=== PATIENT | male | born 1945 | race Caucasian/White ===

== ENCOUNTER 2017-05-28 09:58 | Outpatient (CLI) | payer MEDICARE, OTHER ==
[2017-05-28] MEDS ORDERED: BARIUM SULFATE 454 GM TUBE PO ONE (10:47)
[2017-05-28] MEDS ORDERED: BARIUM SULFATE 148 GM POWDER PO ONE (10:47)
--- NOTE | 2017-05-28 13:43 | XRAY Report ---
MODIFIED BARIUM SWALLOW: 05/28/2017 CLINICAL INDICATION: Dysphagia. FINDINGS: Various consistencies of barium were prepared and administered in conjunction with Speech Pathology. There was penetration with thin liquids and mixed consistency, without loraine aspiration. Please also refer to full report from Speech Pathology for further findings. IMPRESSION: PENETRATION WITH THIN LIQUIDS AND MIXED CONSISTENCY, WITHOUT LORAINE ASPIRATION. FLUOROSCOPY TIME: 1 minute, 28 seconds; 1 spot image obtained (cinefluoroscopy recorded). JOB #: [id number] EXT JOB #:[id number]
== END 2017-05-28 09:59 | disposition home or self-care (01) ==
LOC: DI 09:58
PROVIDERS: ATTEND Physician Assistant Medical
DX: R13.12 Dysphagia, oropharyngeal phase (principal)
CPT/HCPCS: 74230; 92611; G8996; G8997; G8998

== ENCOUNTER 2017-07-31 17:19 | Outpatient (CLI) | payer MEDICARE, OTHER ==
--- NOTE | 2017-07-31 17:57 | CT Preliminary Report ---
Exam: CT Head W/O IMPRESSION: 1. No acute or focal intracranial abnormality. [facility] SITE ID: [id number]
--- NOTE | 2017-07-31 17:59 | CT Report ---
EXAM: CT HEAD EXAM DATE: 07/31/2017 05:38 PM. CLINICAL HISTORY: ALTERED MENTAL STATUS, OTALGIA, RIGHT. COMPARISON: None. TECHNIQUE: Multiaxial CT images were obtained from the foramen magnum to the vertex. IV contrast: Non e. Reformats: Coronal. In accordance with CT protocol optimization, one or more of the following dose reduction techniques w ere utilized for this exam: automated exposure control, adjustment of mA and/or KV based on patient s ize, or use of iterative reconstructive technique. FINDINGS: Parenchyma: There is mild nonfocal periventricular white matter hypodensity. Negative for intracrania l acute hemorrhage. No midline shift. Extraaxial Spaces: No abnormal subdural or epidural fluid collection. There is generalized mild cereb ral volume loss. Ventricles: Symmetric in size and normal in location. Sinuses: Imaged paranasal sinuses, orbits, and mastoids show no significant abnormality. Bones: No evidence of fracture or calvarial defect. Other: None. IMPRESSION: 1. No acute or focal intracranial abnormality. [facility] Referring Provider Line: [phone] SITE ID: [id number]
[2017-07-31 18:07] LABS: CALCIUM 9.1 mg/dL (8.5-10.3); CREATININE 0.8 mg/dL (0.6-1.2); POTASSIUM 3.9 mmol/L (3.5-5.0)
== END 2017-07-31 17:20 | disposition home or self-care (01) ==
LOC: DI 17:19
PROVIDERS: ATTEND Physician Assistant Medical
DX: R41.82 Altered mental status, unspecified (principal); H92.01 Otalgia, right ear
CPT/HCPCS: 70450; 80048

== ENCOUNTER 2017-08-05 13:23 | Outpatient (CLI) | payer MEDICARE, OTHER ==
[2017-08-05] MEDS ORDERED: GADOBUTROL 7.5 MMOL/7.5 ML VIAL IVP ONE (14:35)
--- NOTE | 2017-08-05 19:29 | MRI Report ---
MRI BRAIN AND INTERNAL AUDITORY CANALS WITHOUT AND WITH CONTRAST EXAM DATE: 08/05/2017. INDICATION: 72-year-old male with altered mental status, right-sided otalgia and memory loss. COMPARISON: Head CT 07/31/2017. TECHNIQUE: Imaging of the brain and internal auditory canals was performed on a [employer], 3 Christine MRI system. The foll owing sequences were obtained: Brain: 1. Sagittal T1. 2. Axial T1 MPRAGE, FLAIR, T2 and DWI. 3. 7 mL IV Gadavist. T1 MPRAGE axial. Internal Auditory Canals: 1. Thin slice, fat-saturated T2 coronal. 2. Thin slice, high-resolution, balanced FFE axial. 3. Postcontrast, thin slice T1 fat-saturated axial. FINDINGS: Internal Auditory Canals: On the balanced FFE axial sequence the vestibulocochlear nerve bundles are well seen in the CP angle cisterns and internal auditory canals bilaterally. No focal mass lesion is demonstrated. Normal fluid -filled spaces are identified in the distribution of the cochlea, vestibules and semicircular canals bilaterally. The bone overlying the left superior semicircular canal is very thin; however, no loraine dehiscence of either superior semicircular canal is identified. No abnormal enlargement of the endoly mphatic ducts or sacs is demonstrated. Postcontrast sequence shows no evidence of an enhancing CP ang le or internal auditory canal mass lesion. In addition, no abnormal enhancement is identified in eith er labyrinth. Brain: There is generalized, cerebral and cerebellar volume loss with associated ex vacuo ventriculomegaly. There is no apparent discordance between the degree of ventriculomegaly and the amount of cortical dumont lcal dilatation to suggest the possibility of NPH or other form of hydrocephalus. The degree of volum e loss is considered within normal limits for stated age. Of note, there does appear to be somewhat d isproportionate enlargement of the temporal horns when compared to the remainder of the lateral ventr icles. This suggests that there probably is disproportionately advanced volume loss involving the hip pocampi, a finding that can be seen with Alzheimer's disease. A mild amount of white matter disease is identified in the supratentorial brain, manifested as focal and confluent T2 hyperintensities that are scattered throughout the periventricular, deep and subcort ical white matter bilaterally. A frontoparietal distribution predominates. There is hazy T2 hyperinte nsity in the darwin bilaterally. Signal intensity of cortex and white matter is otherwise unremarkable. Flow voids are seen in the main intracranial arteries. No abnormal diffusion restriction is demonstra yazmin. No enhancing space-occupying mass lesion is demonstrated. No pathologic meningeal or cranial nerve en hancement is identified. There appears to be normal intravascular contrast enhancement in the dural v enous sinuses and deep venous structures. Limited assessment of the orbits reveals no gross pathology. Mucosal thickening is identified in multiple ethmoid air cells and in the left chamber of the sphenoi d sinus. No air-fluid level is identified. No significant mastoid or middle ear effusion is seen. Marrow signal intensity in the regional skeletal structures is unremarkable. IMPRESSION: 1. Normal MRI examination of the internal auditory canals. 2. Age-appropriate senescent changes. There appears to be disproportionately more advanced volume los s involving the hippocampi. This is a finding that can be seen with Alzheimer's disease. Clinical cor relation advised. 3. A mild amount of white matter disease is identified, likely representing chronic microangiopathy. 4. No other significant intracranial findings. In particular, no evidence of infarction, hemorrhage, space-occupying mass lesion or other acute intracranial abnormality. Referring Provider Line: [phone] SITE ID: [id number]
== END 2017-08-05 13:24 | disposition home or self-care (01) ==
LOC: DI 13:23
PROVIDERS: ATTEND Physician Assistant Medical
DX: R41.82 Altered mental status, unspecified (principal); R41.3 Other amnesia; H92.01 Otalgia, right ear
CPT/HCPCS: 70553; A9585

== ENCOUNTER 2018-02-20 08:00 | Outpatient (CLI) | payer MEDICARE, OTHER ==
[2018-02-20 12:37] LABS: BASOPHILS % (AUTO) 0.4 %; EOSINOPHILS # (AUTO) 0.1 10^3/uL (0.0-0.7); HGB - HEMOGLOBIN 13.4 g/dL (14.0-18.0); LYMPHOCYTES # (AUTO) 0.9 10^3/uL (1.5-3.5); LYMPHOCYTES % (AUTO) 21.2 %; MEAN CORPUSCULAR HEMOGLOBIN 31.1 pg (27.0-31.0); MEAN CORPUSCULAR HGB CONC 34.4 g/dL (32.0-36.0); MEAN CORPUSCULAR VOLUME 90.6 fL (80.0-94.0); MEAN PLATELET VOLUME 7.9 fL (7.4-11.4); MONOCYTES # (AUTO) 0.3 10^3/uL (0.0-1.0); MONOCYTES % (AUTO) 7.5 %; NEUTROPHILS % (AUTO) 67.9 %; PLT - PLATELET COUNT 219 10^3/uL (130-450); RED CELL DISTRIBUTION WIDTH 13.2 % (12.0-15.0); WHITE BLOOD COUNT 4.5 x10^3/uL (4.8-10.8)
[2018-02-20 13:04] LABS: THYROID STIMULATING HORMONE < 0.08 uIU/mL (0.34-5.60)
[2018-02-20 13:11] LABS: ALBUMIN 4.2 g/dL (3.2-5.5); ALBUMIN/GLOBULIN RATIO 1.6 (1.0-2.2); ALKALINE PHOSPHATASE 77 IU/L (42-121); ALT ALANINE AMINOTRANSFERASE 22 IU/L (10-60); AST ASPARTATE AMINOTRANSFERASE 20 IU/L (10-42); BILIRUBIN,TOTAL 0.5 mg/dL (0.2-1.0); BUN - BLOOD UREA NITROGEN 18 mg/dL (6-20); CALCIUM 9.3 mg/dL (8.5-10.3); CARBON DIOXIDE - CO2 28 mmol/L (21-32); CHLORIDE 102 mmol/L (101-111); CHOL/HDL RATIO 5.5 (<5.0); CHOLESTEROL 280 mg/dL; CREATININE 0.9 mg/dL (0.6-1.2); GFR - MDRD 82 (>89); GLUCOSE 139 mg/dL (70-100); HDL CHOLESTEROL 51 mg/dL; LDL CHOLESTEROL,CALCULATED 195 mg/dL; LDL/HDL RATIO 3.8 (<3.6); SODIUM 137 mmol/L (135-145); TOTAL PROTEIN 6.8 g/dL (6.7-8.2); VLDL CHOLESTEROL 34 mg/dL
[2018-02-20 14:15] LABS: FREE T4 (FREE THYROXINE) 0.98 ng/dL (0.58-1.64)
== END 2018-02-20 08:01 | disposition home or self-care (01) ==
LOC: LAB.WCP 08:00
PROVIDERS: ATTEND Physician Assistant Medical
DX: E78.5 Hyperlipidemia, unspecified (principal); R97.20 Elevated prostate specific antigen [PSA]; E03.9 Hypothyroidism, unspecified; I10 Essential (primary) hypertension
CPT/HCPCS: 36415; 80053; 80061; 83721; 84153; 84439; 84443; 85025

== ENCOUNTER 2018-02-24 16:54 | Outpatient (CLI) | payer MEDICARE, OTHER ==
[2018-02-24 16:30] LABS: PSA FREE 0.597 ng/mL (0.16-2.81)
[2018-02-24 16:31] LABS: PSA TOTAL 8.445 ng/mL (0.000-2.000)
== END 2018-02-24 16:55 | disposition home or self-care (01) ==
LOC: LAB.R 16:54
PROVIDERS: ATTEND Physician Assistant Medical
DX: R97.20 Elevated prostate specific antigen [PSA] (principal)
CPT/HCPCS: 84154

== ENCOUNTER 2018-02-27 08:00 | Outpatient (CLI) | payer MEDICARE, OTHER ==
[2018-02-27 13:12] LABS: % IRON SATURATION 34 % (20-50); ALBUMIN 4.3 g/dL (3.2-5.5); ALBUMIN/GLOBULIN RATIO 1.7 (1.0-2.2); ALKALINE PHOSPHATASE 86 IU/L (42-121); ALT ALANINE AMINOTRANSFERASE 17 IU/L (10-60); AST ASPARTATE AMINOTRANSFERASE 20 IU/L (10-42); BILIRUBIN,TOTAL 0.8 mg/dL (0.2-1.0); BUN - BLOOD UREA NITROGEN 16 mg/dL (6-20); CALCIUM 9.2 mg/dL (8.5-10.3); CARBON DIOXIDE - CO2 30 mmol/L (21-32); CHLORIDE 101 mmol/L (101-111); CHOL/HDL RATIO 5.3 (<5.0); CHOLESTEROL 294 mg/dL; GFR - MDRD 73 (>89); GLUCOSE 102 mg/dL (70-100); HDL CHOLESTEROL 55 mg/dL; IRON 108 ug/dL (45-182); LDL CHOLESTEROL,CALCULATED 217 mg/dL; LDL/HDL RATIO 3.9 (<3.6); SODIUM 136 mmol/L (135-145); TOTAL IRON BINDING CAPACITY 322 ug/dL (250-450); TOTAL PROTEIN 6.8 g/dL (6.7-8.2); TRANSFERRIN 230 mg/dL (180-329); VLDL CHOLESTEROL 22 mg/dL
[2018-02-27 13:13] LABS: HB2 TOTAL 14.2 g/dL; HEMOGLOBIN A1C 0.53 g/dL; HEMOGLOBIN A1C % 5.6 % (4.6-6.2)
[2018-02-27 13:23] LABS: FERRITIN 51.7 ng/mL (23.9-336.2)
== END 2018-02-27 08:01 | disposition home or self-care (01) ==
LOC: LAB.WCP 08:00
PROVIDERS: ATTEND Physician Assistant Medical
DX: R73.9 Hyperglycemia, unspecified (principal); E78.5 Hyperlipidemia, unspecified; D64.9 Anemia, unspecified; R97.20 Elevated prostate specific antigen [PSA]
CPT/HCPCS: 36415; 80053; 80061; 82607; 82728; 83036; 83540; 83721; 84154; 84466

== ENCOUNTER 2019-03-24 10:34 | Outpatient (CLI) | payer MEDICARE, OTHER ==
--- NOTE | 2019-03-24 11:12 | XRAY Report ---
Reason: FOOT PAIN,LEFT Procedure Date: 03/24/2019 Accession Number: [id number] / [id number] Procedure: WCP - Foot 2 View LT CPT Code: FULL RESULT: EXAM: LEFT FOOT RADIOGRAPHY EXAM DATE: 03/24/2019 10:50 AM. CLINICAL HISTORY: Foot pain, left. COMPARISON: None. TECHNIQUE: 2 views. FINDINGS: Bones: Normal. No fractures or bone lesions. Joints: Normal. No subluxations. Soft Tissues: Note is made of vascular calcifications, peripheral arterial disease. IMPRESSION: Peripheral arterial disease. [facility]
== END 2019-03-24 10:35 | disposition home or self-care (01) ==
LOC: DI.WCP 10:34
PROVIDERS: ATTEND Physician Assistant Medical
DX: M79.672 Pain in left foot (principal); I73.9 Peripheral vascular disease, unspecified; I10 Essential (primary) hypertension; E03.9 Hypothyroidism, unspecified; E78.5 Hyperlipidemia, unspecified; R73.9 Hyperglycemia, unspecified
CPT/HCPCS: 36415; 80053; 80061; 83036; 83721; 84439; 84443; 85025

== ENCOUNTER 2019-03-24 10:51 | Outpatient (CLI) | payer MEDICARE, OTHER ==
[2019-03-24 19:42] LABS: BASOPHILS % (AUTO) 0.5 %; EOSINOPHILS # (AUTO) 0.1 10^3/uL (0.0-0.7); EOSINOPHILS % (AUTO) 1.5 %; HGB - HEMOGLOBIN 12.6 g/dL (14.0-18.0); LYMPHOCYTES # (AUTO) 1.1 10^3/uL (1.5-3.5); LYMPHOCYTES % (AUTO) 21.8 %; MEAN CORPUSCULAR HEMOGLOBIN 30.9 pg (27.0-31.0); MEAN CORPUSCULAR HGB CONC 33.3 g/dL (32.0-36.0); MEAN CORPUSCULAR VOLUME 92.7 fL (80.0-94.0); MONOCYTES # (AUTO) 0.3 10^3/uL (0.0-1.0); MONOCYTES % (AUTO) 6.9 %; NEUTROPHILS # (AUTO) 3.4 10^3/uL (1.5-6.6); NEUTROPHILS % (AUTO) 69.3 %; PLT - PLATELET COUNT 220 10^3/uL (130-450); RED BLOOD COUNT 4.08 10^6/uL (4.70-6.10); RED CELL DISTRIBUTION WIDTH 13.6 % (12.0-15.0); WHITE BLOOD COUNT 4.9 x10^3/uL (4.8-10.8)
[2019-03-24 20:30] LABS: ALBUMIN 4.1 g/dL (3.2-5.5); ALBUMIN/GLOBULIN RATIO 1.5 (1.0-2.2); ALKALINE PHOSPHATASE 73 IU/L (42-121); ALT ALANINE AMINOTRANSFERASE 13 IU/L (10-60); AST ASPARTATE AMINOTRANSFERASE 17 IU/L (10-42); BILIRUBIN,TOTAL 0.8 mg/dL (0.2-1.0); BUN - BLOOD UREA NITROGEN 22 mg/dL (6-20); CALCIUM 9.2 mg/dL (8.5-10.3); CARBON DIOXIDE - CO2 30 mmol/L (21-32); CHLORIDE 100 mmol/L (101-111); CHOL/HDL RATIO 4.1 (<5.0); CHOLESTEROL 258 mg/dL; CREATININE 0.8 mg/dL (0.6-1.2); GFR - MDRD 94 (>89); GLUCOSE 105 mg/dL (70-100); HDL CHOLESTEROL 63 mg/dL; LDL CHOLESTEROL,CALCULATED 178 mg/dL; LDL/HDL RATIO 2.8 (<3.6); SODIUM 138 mmol/L (135-145); TOTAL PROTEIN 6.9 g/dL (6.7-8.2); VLDL CHOLESTEROL 17 mg/dL
[2019-03-24 21:04] LABS: FREE T4 (FREE THYROXINE) 1.06 ng/dL (0.58-1.64)
[2019-03-24 21:12] LABS: HB2 TOTAL 13.3 g/dL; HEMOGLOBIN A1C 0.56 g/dL
== END 2019-03-24 10:52 | disposition home or self-care (01) ==
LOC: LAB.WCP 10:51
PROVIDERS: ATTEND Family Medicine
DX: I10 Essential (primary) hypertension (principal); E03.9 Hypothyroidism, unspecified; E78.5 Hyperlipidemia, unspecified; R73.9 Hyperglycemia, unspecified
CPT/HCPCS: 36415; 80053; 80061; 83036; 83721; 84439; 84443; 85025

== ENCOUNTER 2019-06-23 11:15 | Outpatient (CLI) | payer MEDICARE, OTHER | END 2019-06-23 11:16 | disposition critical access hospital (66) | LOC: EMS 11:15 | PROVIDERS: ATTEND Surgery | DX: S09.90XA Unspecified injury of head, initial encounter (principal); W01.0XXA Fall on same level from slipping, tripping and stumbling without subsequent striking against object, initial encounter; Y93.K1 Activity, walking an animal; Y92.480 Sidewalk as the place of occurrence of the external cause | CPT/HCPCS: A0425; A0429 ==

== ENCOUNTER 2019-06-23 11:34 | Emergency (ER) | payer MEDICARE, OTHER ==
--- NOTE | 2019-06-23 11:43 | ED Physician Documentation ---
History of Present Illness - Stated complaint Stated Complaint: GLF - History obtained from History obtained from: Patient, Family - History of Present Illness Timing: Prior to arrival - Additonal information Additional information: Patient is a 74-year-old male with history of dementia presenting with his after mechanical fall earlier today. reports that patient was out walking the dog and is unsure as to how he fell, but reports striking of his head and superficial abrasion to the left forehead. Unknown LOC. No other known injuries. Tetanus current. Patient and deny neck pain, back pain, chest pain, shortness of breath, extremity injury. Patient's also denies any recent changes to his baseline mental or physical health including new vomiting, urinary changes, or stool changes. No other improving or worsening factors noted. Review of Systems Constitutional: denies: Fever Eyes: denies: Loss of vision Nose: denies: Epistaxis Throat: denies: Dental pain / toothache Cardiac: denies: Chest pain / pressure Respiratory: denies: Dyspnea, Cough GI: denies: Abdominal Pain, Nausea, Vomiting, Diarrhea : denies: Dysuria Skin: reports: Abrasion (s) Musculoskeletal: denies: Neck pain, Back pain, Extremity pain Neurologic: reports: Head injury PD PAST MEDICAL HISTORY - Past Medical History Past Medical History: Yes Neuro: Alzhiemer's Psych: Depression - Past Surgical History Past Surgical History: No - Allergies Allergies/Adverse Reactions: Allergies Allergy/AdvReac Type Severity Reaction Status Date / Time No Known Drug Allergies Allergy Verified 06/23/19 11:57 - Living Situation Living Arrangement: reports: Assisted living PD ED PE NORMAL - Vitals Vital signs reviewed: Yes - General General: No acute distress, Well developed/nourished. No: Alert and oriented X 3 (Oriented except to time ( reports baseline)) - HEENT HEENT: PERRL, EOMI, Moist mucous membranes, Dentition benign, Other (No epistaxis or intraoral trauma noted.). No: Atraumatic (Small superficial abrasion to left forehead that is otherwise uncomplicated, but no other facial bone tenderness or instability, raccoon eyes, carrera signs, periorbital swelling or ecchymosis noted.) - Neck Neck: No bony TTP - Cardiac Cardiac: RRR, No murmur - Respiratory Respiratory: No respiratory distress, Clear bilaterally - Abdomen Abdomen: Normal bowel sounds, Soft, Non tender, Non distended - Back Back: No spinal TTP - Derm Derm: Normal color, Warm and dry, No rash - Extremities Extremities: No deformity, No tenderness to palpate. No: No edema (Trace non pitting pedal edema bilaterally) - Neuro Neuro: No motor deficit, No sensory deficit. No: Alert and oriented X 3 (Oriented except to time) - Psych Psych: Other (Flat affect) Results - Vitals Vitals: Vital Signs - 24 hr 06/23/19 11:54 Temperature 36.6 C Heart Rate 62 Respiratory 20 Rate Blood Pressure 114/73 O2 Saturation 98 Oxygen O2 Source Room air - EKG (time done) 1207 Rate: Rate (enter#) (56) Rhythm: NSR - Labs Labs: Laboratory Tests 06/23/19 06/23/19 06/23/19 12:04 12:04 12:04 WBC 6.4 RBC 3.76 L Hgb 11.5 L Hct 34.7 L MCV 92.3 MCH 30.6 MCHC 33.1 RDW 12.4 Plt Count 197 MPV 8.8 Neut # (Auto) 4.8 Lymph # (Auto) 0.8 L [place] # (Auto) 0.5 Eos # (Auto) 0.2 Baso # (Auto) 0.0 Absolute Nucleated RBC 0.00 Nucleated RBC % 0.0 Sodium 140 Potassium 4.0 Chloride 101 Carbon Dioxide 28 Anion Gap 11.0 BUN 23 H Creatinine 0.8 Estimated GFR (MDRD) 94 Glucose 95 Calcium 9.1 Total Bilirubin 0.6 AST 20 ALT 20 Alkaline Phosphatase 103 Troponin I < 0.04 Troponin I High Sens 3.7 Total Protein 6.6 L Albumin 3.8 Globulin 2.8 Albumin/Globulin Ratio 1.4 Lipase 26 Urine Color Urine Clarity Urine pH Ur Specific [place] Urine Protein Urine Glucose (UA) Urine Ketones Urine Occult Blood Urine Nitrite Urine Bilirubin Urine Urobilinogen Ur Leukocyte Esterase Ur Microscopic Review Urine Culture Comments 06/23/19 13:30 WBC RBC Hgb Hct MCV MCH MCHC RDW Plt Count MPV Neut # (Auto) Lymph # (Auto) [place] # (Auto) Eos # (Auto) Baso # (Auto) Absolute Nucleated RBC Nucleated RBC % Sodium Potassium Chloride Carbon Dioxide Anion Gap BUN Creatinine Estimated GFR (MDRD) Glucose Calcium Total Bilirubin AST ALT Alkaline Phosphatase Troponin I Troponin I High Sens Total Protein Albumin Globulin Albumin/Globulin Ratio Lipase Urine Color YELLOW Urine Clarity CLEAR Urine pH 6.5 Ur Specific [place] 1.010 Urine Protein NEGATIVE Urine Glucose (UA) NEGATIVE Urine Ketones NEGATIVE Urine Occult Blood NEGATIVE Urine Nitrite NEGATIVE Urine Bilirubin NEGATIVE Urine Urobilinogen 0.2 (NORMAL) Ur Leukocyte Esterase NEGATIVE Ur Microscopic Review NOT INDICATED Urine Culture Comments NOT INDICATED PD MEDICAL DECISION MAKING - ED course Complexity details: reviewed results, re-evaluated patient, considered differential, d/w patient, d/w family ED course: Patient presenting with his after fall while walking the dog earlier today. Patient has superficial abrasion to the left forehead that will not require closure. Tetanus is current and does not require updating. Patient himself is a poor historian given his underlying dementia and able to provide further history. Besides his head trauma, do not find evidence of other trauma on exam. Do not find evidence of new neurological deficit and patient's reports that he is at baseline.No other signs of systemic illness.CT head and neck obtained which not find evidence of acute abnormality, but age-related and chronic findings. EKG and cardiac enzymes obtained although have low suspicion for cardiac event such as ACS, MT, unstable angina, dissection, aneurysm, but considered. No evidence of ischemia today. Remainder of screening lab work and urinalysis do not reflect infection, electrolyte disturbance, acute kidney inj ury, or other abnormality. At this time, feel that patient is safe to discharge home with . Discussed results and recommendations, as well as supportive cares, return precautions, and follow-up. voiced understanding and is comfortable with discharge plan. Departure - Departure Disposition: 01 Home, Self Care Clinical Impression: Closed head injury Qualifiers: Encounter type: initial encounter Qualified Code(s): S09.90XA - Unspecified injury of head, initial encounter Condition: Good Instructions: ED Head Injury Closed Follow-Up: Marycarmen Belle PA-C [Primary Care Provider] - Within 3 Days Comments: Please continue all home medications as previously instructed. You may experience concussive-like symptoms and please refrain from activities that could result in falling or striking of your head again. Follow-up with primary care physician in next 2 to 3 days for reevaluation and approval to return to full activity. May use ibuprofen/Tylenol for pain. Please keep wound clean and dry using running water and soap only to clean to avoid infection. Return to ED sooner if experience another fall or have other concerns.
[2019-06-23 12:12] LABS: BASOPHILS % (AUTO) 0.3 %; EOSINOPHILS # (AUTO) 0.2 10^3/uL (0.0-0.7); EOSINOPHILS % (AUTO) 3.6 %; HGB - HEMOGLOBIN 11.5 g/dL (14.0-18.0); LYMPHOCYTES # (AUTO) 0.8 10^3/uL (1.5-3.5); LYMPHOCYTES % (AUTO) 12.4 %; MEAN CORPUSCULAR HEMOGLOBIN 30.6 pg (27.0-31.0); MEAN CORPUSCULAR HGB CONC 33.1 g/dL (32.0-36.0); MEAN CORPUSCULAR VOLUME 92.3 fL (80.0-94.0); MEAN PLATELET VOLUME 8.8 fL (7.4-11.4); MONOCYTES # (AUTO) 0.5 10^3/uL (0.0-1.0); MONOCYTES % (AUTO) 7.8 %; NEUTROPHILS # (AUTO) 4.8 10^3/uL (1.5-6.6); NEUTROPHILS % (AUTO) 75.6 %; PLT - PLATELET COUNT 197 10^3/uL (130-450); RED BLOOD COUNT 3.76 10^6/uL (4.70-6.10); RED CELL DISTRIBUTION WIDTH 12.4 % (12.0-15.0); WHITE BLOOD COUNT 6.4 x10^3/uL (4.8-10.8)
[2019-06-23 12:30] LABS: CREATININE 0.8 mg/dL (0.6-1.2)
[2019-06-23 12:31] LABS: ALBUMIN 3.8 g/dL (3.2-5.5); ALBUMIN/GLOBULIN RATIO 1.4 (1.0-2.2); BILIRUBIN,TOTAL 0.6 mg/dL (0.2-1.0); CALCIUM 9.1 mg/dL (8.5-10.3); TOTAL PROTEIN 6.6 g/dL (6.7-8.2)
[2019-06-23 12:39] LABS: TROPONIN I < 0.04 ng/mL (<0.49)
--- NOTE | 2019-06-23 13:06 | CT Report ---
Reason: fall with abrasion to left forehead Procedure Date: 06/23/2019 Accession Number: [id number] / [id number] Procedure: CT - CERVICAL SPINE WO CPT Code: FULL RESULT: EXAM: CT CERVICAL SPINE WITHOUT CONTRAST DATE: 06/23/2019 12:40 PM. HISTORY: Fall with abrasion to left forehead. COMPARISONS: HEAD W/O 07/31/2017 5:37 PM. HEAD W/O 06/23/2019 12:33 PM. TECHNIQUE: Thin-section axial images were acquired of the cervical spine without contrast. Post-processing: Coronal and sagittal reformats. Other: None. In accordance with CT protocol optimization, one or more of the following dose reduction techniques were utilized for this exam: automated exposure control, adjustment of mA and/or KV based on patient size, or use of iterative reconstructive technique. FINDINGS: Alignment: Straightening of the normal cervical lordosis. Slight rightward curvature of the cervical spine. Bones: No fracture or bone lesion. Interspace Levels/Facets: C1-C2: There are arthritic changes seen between the dens and anterior arch of C1. C2-C3: Mild endplate degenerative change with moderate loss of disk height. Calcification seen within the disk space. Small broad-based disk osteophyte complex. Bilateral arthritic facet disease. No definite spinal canal stenosis. Mild left neural foraminal narrowing. C3-C4: Moderate endplate degenerative change, moderate loss of disk height, calcification within the disk space, and vacuum disk phenomenon. Small broad-based disk osteophyte complex. Bilateral uncovertebral osteophyte and arthritic facet disease. Mild spinal canal stenosis. Severe right and moderate left neural foraminal narrowing. C4-C5: Moderate endplate degenerative change, Schmorl's node formation, moderate loss of disk height, and vacuum disk phenomenon. Small broad-based disk osteophyte complex and ligamentum flavum thickening. Bilateral uncovertebral osteophyte and arthritic facet disease. Mild to moderate spinal canal stenosis. Severe bilateral neural foraminal narrowing. C5-C6: Moderate endplate degenerative change, Schmorl's node formation, moderate loss of disk height, and vacuum disk phenomenon. Small broad-based disk osteophyte complex and ligamentum flavum thickening. Bilateral uncovertebral osteophyte and arthritic facet disease. Mild to moderate spinal canal stenosis. Moderate bilateral neural foraminal narrowing. C6-C7: Moderate endplate degenerative change, Schmorl's node formation, and severe loss of disk height. Vacuum disk phenomenon. Small broad-based disk osteophyte complex. Bilateral uncovertebral osteophyte and arthritic facet disease. Mild spinal canal stenosis. Mild to moderate right and moderate left neural foraminal narrowing. C7-T1: Anterior bridging osteophyte. Moderate endplate degenerative change, Schmorl's node formation, and severe loss of disk height. Bilateral arthritic facet disease. No definite spinal canal stenosis. Mild right and mild to moderate left neural foraminal narrowing. Musculature: Posterior spinal musculature appears normal. Minimal edema seen within the subcutaneous tissues of the posterior neck that may represent edema. Other: The paravertebral and prevertebral soft tissues are unremarkable. Vascular calcifications of the carotid bifurcations. Pleural-parenchymal scarring of the visualized lung apices, greater on the right. Mild emphysematous changes. IMPRESSION: 1. No definite acute fracture or traumatic subluxation seen. 2. Straightening of the normal cervical lordosis. 3. Multilevel degenerative changes, as detailed above. [facility]
--- NOTE | 2019-06-23 13:26 | CT Report ---
Reason: fall with abrasion to left forehead Procedure Date: 06/23/2019 Accession Number: [id number] / [id number] Procedure: CT - HEAD WO CPT Code: FULL RESULT: EXAM: CT HEAD EXAM DATE: 06/23/2019 12:40 PM. CLINICAL HISTORY: Fall with abrasion to left forehead. COMPARISON: HEAD W/O 07/31/2017 5:37 PM. TECHNIQUE: Multiaxial CT images were obtained from the foramen magnum to the vertex. Reformats: Sagittal and coronal. IV contrast: None. In accordance with CT protocol optimization, one or more of the following dose reduction techniques were utilized for this exam: automated exposure control, adjustment of mA and/or KV based on patient size, or use of iterative reconstructive technique. FINDINGS: Parenchyma: No acute parenchymal hemorrhage, mass, or midline shift. Mild to moderate bilateral areas of white matter attenuation seen that appears similar to CT head 07/31/2017. No convincing CT evidence of acute infarct. Mild to moderate cortical volume loss. Extraaxial Spaces: Sulci and cistern appear prominent but appropriate for the extent of volume loss. No subdural or epidural collections identified. Ventricles: Normal in size and position. Sinuses and Orbits: Imaged paranasal sinuses, orbits, and mastoids show no significant abnormality. Bones: No evidence of fracture or calvarial defect. Other: There is a 2 mm defect of the midline frontal scalp dermis that may represent laceration (series 7, image 10). There is small left lateral frontal scalp contusion. IMPRESSION: 1. No definite acute intracranial pathology seen; specifically, no acute infarct, acute intracranial hemorrhage, mass, hydrocephalus, or midline shift. 2. There is a 2 mm defect of the midline frontal scalp dermis that may represent laceration (series 7, image 10). There is small left lateral frontal scalp contusion. 3. No definite calvarial fracture. 4. Mild to moderate white matter changes that appear similar to CT head 07/31/2017 and may represent sequela of chronic small vessel ischemic disease. [facility]
[2019-06-23 13:41] LABS: BILIRUBIN,URINE NEGATIVE (NEGATIVE); GLUCOSE, URINE (UA) NEGATIVE (NEGATIVE); KETONES,URINE (UA) NEGATIVE (NEGATIVE); LEUKOCYTE ESTERASE, URINE NEGATIVE (NEGATIVE); NITRITE,URINE NEGATIVE (NEGATIVE); OCCULT BLOOD,URINE NEGATIVE (NEGATIVE); PH,URINE 6.5 PH (5.0-7.5); PROTEIN,URINE NEGATIVE (NEGATIVE); UROBILINOGEN,URINE 0.2 (NORMAL) E.U./dL (NORMAL)
[2019-06-23 13:44] LABS: CLARITY,URINE CLEAR (CLEAR)
[2019-06-23 14:09] VITALS: BP 132/86
== END 2019-06-23 14:11 | disposition home or self-care (01) ==
LOC: EDUNIT# → ED 11:34
DX: S09.90XA Unspecified injury of head, initial encounter (principal); S00.81XA Abrasion of other part of head, initial encounter; W18.30XA Fall on same level, unspecified, initial encounter; Y93.K1 Activity, walking an animal; G30.9 Alzheimer's disease, unspecified; F02.80 Dementia in other diseases classified elsewhere, unspecified severity, without behavioral disturbance, psychotic disturbance, mood disturbance, and anxiety; M50.30 Other cervical disc degeneration, unspecified cervical region; R60.0 Localized edema
CPT/HCPCS: 36415; 70450; 72125; 80053; 81001; 81003; 83690; 84484; 85025; 87086; 93005; 99283; 99284

== ENCOUNTER 2019-06-30 11:32 | Outpatient (CLI) | payer MEDICARE, OTHER ==
--- NOTE | 2019-06-30 16:12 | XRAY Report ---
Reason: HIP PAIN,BILATERAL Procedure Date: 06/30/2019 Accession Number: [id number] / [id number] Procedure: XR - Hips 2V BILAT CPT Code: FULL RESULT: EXAM: BILATERAL HIP RADIOGRAPHY. EXAM DATE: 06/30/2019 12:25 PM. CLINICAL HISTORY: Hip pain, bilateral. COMPARISON: None. TECHNIQUE: 2 views each. FINDINGS: Bones: No acute fracture or bony lesion. Degenerative spurring. Right Hip: Mild to moderate narrowing of the right hip joint. No dislocation. Left Hip: Mild to moderate narrowing of the left hip joint. No dislocation. Degenerative changes of the lower lumbar spine. Soft Tissues: Vascular calcifications. IMPRESSION: 1. Mild to moderate degenerative changes of the right and left hip joints. [facility]
--- NOTE | 2019-06-30 16:12 | XRAY Report ---
Reason: LOW BACK PAIN,ACUTE Procedure Date: 06/30/2019 Accession Number: [id number] / [id number] Procedure: XR - Lumbar Spine 2 View CPT Code: FULL RESULT: EXAM: LUMBOSACRAL SPINE RADIOGRAPHY EXAM DATE: 06/30/2019 12:25 PM. CLINICAL HISTORY: LOW BACK PAIN, ACUTE. COMPARISONS: None. TECHNIQUE: 2 views. FINDINGS: Alignment: Normal. No spondylolisthesis or scoliosis. Bones: Five saq-nry-ilvoerr lumbar vertebral bodies are present. Detail limited due to technique on the lateral view. Mild degenerative spurring. Slight endplate depression suggested involving L2 although not definitive. Disks: Mild multilevel disk space narrowing, greatest at L5-S1. Facets: Mild lumbar facet arthropathy. Sacroiliac Joints: Unremarkable. Soft Tissues: Vascular calcifications. IMPRESSION: 1. Mild superior endplate depression suggested of L2 on the lateral view although not definitive. If there is concern for an acute fracture then consider either CT or MRI of the lumbar spine. 2. Degenerative changes of the lumbar spine. [facility]
== END 2019-06-30 11:33 | disposition home or self-care (01) ==
LOC: DI 11:32
PROVIDERS: ATTEND Physician Assistant Medical
DX: M51.37 Other intervertebral disc degeneration, lumbosacral region (principal); M47.816 Spondylosis without myelopathy or radiculopathy, lumbar region
CPT/HCPCS: 72100; 73521

== ENCOUNTER 2019-07-03 10:39 | Outpatient (CLI) | payer MEDICARE, OTHER ==
--- NOTE | 2019-07-05 09:02 | CT Report ---
Reason: LOW BACK PAIN, ACUTE Procedure Date: 07/03/2019 Accession Number: [id number] / [id number] Procedure: CT - LUMBAR SPINE WO CPT Code: FULL RESULT: EXAM: CT LUMBAR SPINE WITHOUT CONTRAST EXAM DATE: 07/03/2019 10:55 AM. CLINICAL HISTORY: Fall 10 days ago. Low back pain. ? Fracture. COMPARISONS: LUMBAR SPINE 2 VIEW 06/30/2019 11:56 AM. TECHNIQUE: Thin-section axial images were acquired of the lumbar spine from T12 to S1 without contrast. Post-processing: Coronal and sagittal reformats. Other: None. In accordance with CT protocol optimization, one or more of the following dose reduction techniques were utilized for this exam: automated exposure control, adjustment of mA and/or KV based on patient size, or use of iterative reconstructive technique. FINDINGS: Alignment: The lumbar lordosis is preserved. There is a 9 degrees levoscoliosis centered on L3. Bones: Five [id number]-azhdmrg lumbar vertebral bodies are present. There are no visible fractures. Disk Levels/Facets: T12-L1: Unremarkable. L1-L2: There is a broad-based posterior bulge and mild facet joint degeneration causing mild canal and foraminal narrowing. L2-L3: There is a broad-based posterior disk bulge and mild facet joint osteoarthritis causing mild canal and foraminal narrowing. L3-L4: There is mild bilateral facet joint osteoarthritis and a posterior disk bulge causing mild canal and foraminal narrowing. L4-L5: There is a broad-based posterior disk bulge with moderate facet joint osteoarthritis causing mild canal and moderate bilateral foraminal narrowing. L5-S1: There is a small posterior disk protrusion causing mild canal narrowing. There is mild bilateral foraminal narrowing. Musculature: Normal. No fatty atrophy. Other: The visualized retroperitoneum is unremarkable. IMPRESSION: 1. No visible fracture. 2. Mild degenerative change. [facility]
== END 2019-07-03 10:40 | disposition home or self-care (01) ==
LOC: DI 10:39
PROVIDERS: ATTEND Physician Assistant Medical
DX: M47.816 Spondylosis without myelopathy or radiculopathy, lumbar region (principal); M51.27 Other intervertebral disc displacement, lumbosacral region
CPT/HCPCS: 72131

== ENCOUNTER 2019-07-05 14:23 | Emergency (ER) | payer MEDICARE, OTHER ==
[2019-07-05 14:30] VITALS: BP 124/72
[2019-07-05 15:27] LABS: BASOPHILS % (AUTO) 0.3 %; EOSINOPHILS % (AUTO) 0.2 %; HGB - HEMOGLOBIN 12.6 g/dL (14.0-18.0); LYMPHOCYTES # (AUTO) 0.8 10^3/uL (1.5-3.5); LYMPHOCYTES % (AUTO) 6.7 %; MEAN CORPUSCULAR HEMOGLOBIN 30.5 pg (27.0-31.0); MEAN CORPUSCULAR HGB CONC 32.9 g/dL (32.0-36.0); MEAN CORPUSCULAR VOLUME 92.7 fL (80.0-94.0); MEAN PLATELET VOLUME 8.9 fL (7.4-11.4); MONOCYTES # (AUTO) 0.7 10^3/uL (0.0-1.0); MONOCYTES % (AUTO) 5.8 %; NEUTROPHILS # (AUTO) 10.3 10^3/uL (1.5-6.6); NEUTROPHILS % (AUTO) 86.6 %; PLT - PLATELET COUNT 216 10^3/uL (130-450); RED BLOOD COUNT 4.13 10^6/uL (4.70-6.10); RED CELL DISTRIBUTION WIDTH 12.9 % (12.0-15.0); WHITE BLOOD COUNT 11.8 x10^3/uL (4.8-10.8)
[2019-07-05 15:35] LABS: ALBUMIN 4.6 g/dL (3.2-5.5); ALBUMIN/GLOBULIN RATIO 1.6 (1.0-2.2); BILIRUBIN,TOTAL 1.3 mg/dL (0.2-1.0); CALCIUM 9.6 mg/dL (8.5-10.3); CREATININE 0.8 mg/dL (0.6-1.2); TOTAL PROTEIN 7.5 g/dL (6.7-8.2)
--- NOTE | 2019-07-05 15:49 | ED Physician Documentation ---
History of Present Illness - Stated complaint Stated Complaint: D/HIGH BP - Chief complaint Chief Complaint: General - History obtained from History obtained from: Patient, Caregiver - History of Present Illness Timing: How many days ago (3) Pain level max: 0 Pain level now: 0 - Additonal information Additional information: 2-3 days of diarrhea. loose stools. not watery. 2-3 times per day. no fevers. no vomiting. no recent abx. tolerating PO without diff. Review of Systems Constitutional: denies: Fever, Chills Throat: denies: Sore throat Cardiac: denies: Chest pain / pressure Respiratory: denies: Cough Skin: denies: Rash Musculoskeletal: denies: Neck pain, Back pain Neurologic: denies: Headache PD PAST MEDICAL HISTORY - Past Medical History Cardiovascular: None Respiratory: None Neuro: Alzhiemer's Endocrine/Autoimmune: HyPOthyroidism GI: Other : None HEENT: None Psych: Depression Musculoskeletal: None Derm: None - Past Surgical History Past Surgical History: No Ortho: Other - Allergies Allergies/Adverse Reactions: Allergies Allergy/AdvReac Type Severity Reaction Status Date / Time No Known Drug Allergies Allergy Verified 07/05/19 14:29 - Social History Does the pt smoke?: No Smoking Status: Never smoker Does the pt drink ETOH?: No Does the pt have substance abuse?: No PD ED PE NORMAL - Vitals Vital signs reviewed: Yes - General General: Alert and oriented X 3, No acute distress, Well developed/nourished - HEENT HEENT: PERRL, Moist mucous membranes - Neck Neck: Supple, no meningeal sign - Cardiac Cardiac: RRR, Strong equal pulses - Respiratory Respiratory: No respiratory distress, Clear bilaterally - Abdomen Abdomen: Soft, Non tender, Non distended - Derm Derm: Warm and dry - Extremities Extremities: No deformity - Neuro Neuro: Alert and oriented X 3 - Psych Psych: Normal mood, Normal affect Results - Vitals Vitals: Oxygen O2 Source Room air - Labs Labs: Microbiology 07/05/19 17:05 Campylobacter Antigen Assay - Final Stool Stool Culture - Final Laboratory Tests 07/05/19 07/05/19 15:15 15:15 WBC 11.8 H RBC 4.13 L Hgb 12.6 L Hct 38.3 L MCV 92.7 MCH 30.5 MCHC 32.9 RDW 12.9 Plt Count 216 MPV 8.9 Neut # (Auto) 10.3 H Lymph # (Auto) 0.8 L [place] # (Auto) 0.7 Eos # (Auto) 0.0 Baso # (Auto) 0.0 Absolute Nucleated RBC 0.00 Nucleated RBC % 0.0 Sodium 141 Potassium 3.8 Chloride 102 Carbon Dioxide 24 Anion Gap 15.0 H BUN 26 H Creatinine 0.8 Estimated GFR (MDRD) 94 Glucose 123 H Calcium 9.6 Total Bilirubin 1.3 H AST 46 H ALT 42 Alkaline Phosphatase 122 H Total Protein 7.5 Albumin 4.6 Globulin 2.9 Albumin/Globulin Ratio 1.6 Lipase 21 L PD MEDICAL DECISION MAKING - ED course Complexity details: reviewed results, re-evaluated patient, considered differential, d/w patient, d/w family ED course: 74-year-old male with diarrhea. Likely viral. He is well-appearing, nontoxic. Afebrile. Tolerating p.o. without any difficulty. Encourage p.o. hydration. Patient and family counseled regarding signs and symptoms for which I believe and urgent re-evaluation would be necessary. Patient with good understanding of and agreement to plan and is comfortable going home at this time This document was made in part using voice recognition software. While efforts are made to proofread this document, sound alike and grammatical errors may occur. Departure - Departure Disposition: 01 Home, Self Care Clinical Impression: Diarrhea Qualifiers: Diarrhea type: unspecified type Qualified Code(s): R19.7 - Diarrhea, unspecified Condition: Good Instructions: ED Diarrhea Viral Follow-Up: Marycarmen Belle PA-C [Primary Care Provider] - Within 1 week Comments: Return if he worsens. Drink plenty of water. Gatorade will be helpful as well. Discharge Date/Time: 07/05/19 17:42
== END 2019-07-05 17:42 | disposition home or self-care (01) ==
LOC: ED 14:23
DX: R19.7 Diarrhea, unspecified (principal); G30.9 Alzheimer's disease, unspecified; F02.80 Dementia in other diseases classified elsewhere, unspecified severity, without behavioral disturbance, psychotic disturbance, mood disturbance, and anxiety
CPT/HCPCS: 36415; 80053; 83690; 85025; 87045; 87046; 99283

== ENCOUNTER 2019-09-02 14:46 | Outpatient (CLI) | payer MEDICARE, OTHER | END 2019-09-02 14:47 | disposition critical access hospital (66) | LOC: EMS 14:46 | PROVIDERS: ATTEND Surgery | DX: R53.1 Weakness (principal); R53.83 Other fatigue | CPT/HCPCS: A0425; A0429 ==

== ENCOUNTER 2019-09-02 15:05 | Emergency (ER) | payer MEDICARE, OTHER ==
--- NOTE | 2019-09-02 15:21 | ED Physician Documentation ---
History of Present Illness - Stated complaint Stated Complaint: WEAKNESS - Chief complaint Chief Complaint: Neuro - Additonal information Additional information: This is a 74-year-old male with a history of Alzheimer's, dementia, who lives at [facility] assisted living who presents with weakness/tiredness and hitting his head. History is obtained via EMS and later from patient's family as patient is demented and does not provide much detailed history. Patient reportedly was tired today, and while sitting in the table he reportedly fell asleep and fell forward hitting his head on the table. Staff state that he did not wake up immediately when they try to arouse him, though he did wake up after somewhere between 30 seconds and a minute. When EMS arrived he also was weaker than usual, typically ambulates independently with a cane, and he required assistance. He denies specific complaints, no shortness of breath, cough, or urinary complaints. He has a scab on his forehead, he denies headache at this time. Review of Systems Unable to obtain: Dementia PD PAST MEDICAL HISTORY - Past Medical History Cardiovascular: None Respiratory: None Neuro: Alzhiemer's Endocrine/Autoimmune: HyPOthyroidism GI: Other : None HEENT: None Psych: Depression Musculoskeletal: None Derm: None - Past Surgical History Past Surgical History: No Ortho: Other - Present Medications Home Medications: Ambulatory Orders Medication Instructions Recorded Confirmed Levothyroxine Sodium [Synthroid] 88 mcg PO DAILY 09/02/19 09/02/19 Paroxetine HCl [Paxil] 30 mg PO DAILY 09/02/19 09/02/19 - Allergies Allergies/Adverse Reactions: Allergies Allergy/AdvReac Type Severity Reaction Status Date / Time No Known Drug Allergies Allergy Verified 09/02/19 15:06 - Social History Does the pt smoke?: No Smoking Status: Never smoker Does the pt drink ETOH?: No Does the pt have substance abuse?: No PD ED PE NORMAL - Vitals Vital signs reviewed: Yes - General General: Alert and oriented X 3, No acute distress - HEENT HEENT: Other (Abrasion to the central forehead, head is otherwise atraumatic) - Neck Neck: Supple, no meningeal sign, No bony TTP - Cardiac Cardiac: RRR - Respiratory Respiratory: No respiratory distress, Clear bilaterally - Abdomen Abdomen: Normal bowel sounds, Soft, Non tender, Non distended - Derm Derm: Warm and dry - Extremities Extremities: No deformity - Neuro Neuro: management associate 2-12 intact, No motor deficit, No sensory deficit, Other (Alert, oriented to general location of hospital, but not to place, does not know the date. Knows his own name. Speech is somewhat halting at times but patient is able to converse and answer basic questions) - Psych Psych: Normal mood, Normal affect Results - Vitals Vitals: Vital Signs - 24 hr 09/02/19 09/02/19 09/02/19 15:06 16:04 16:44 Temperature 36.6 C Heart Rate 61 58 L 56 L Respiratory 15 15 18 Rate Blood Pressure 119/73 102/67 113/70 O2 Saturation 97 99 100 09/02/19 09/02/19 17:37 18:23 Temperature Heart Rate 54 L 53 L Respiratory 18 18 Rate Blood Pressure 119/78 112/72 O2 Saturation 100 97 Oxygen O2 Source Room air - EKG (time done) 15:17 Other comments: Other comments (Rhythm sinus, rate 60, axis normal. There is no ST segment, no abnormal T wave inversions. There is T wave flattening in 3. Intervals within normal limits.) - Labs Labs: Laboratory Tests 09/02/19 09/02/19 09/02/19 15:36 15:36 15:36 WBC 4.5 L RBC 3.72 L Hgb 11.4 L Hct 34.2 L MCV 91.9 MCH 30.6 MCHC 33.3 RDW 13.1 Plt Count 191 MPV 9.3 Neut # (Auto) 3.1 Lymph # (Auto) 0.9 L [place] # (Auto) 0.5 Eos # (Auto) 0.1 Baso # (Auto) 0.0 Absolute Nucleated RBC 0.00 Nucleated RBC % 0.0 Sodium 139 Potassium 3.9 Chloride 102 Carbon Dioxide 29 Anion Gap 8.0 BUN 22 H Creatinine 0.9 Estimated GFR (MDRD) 82 L Glucose 130 H Calcium 8.9 Total Bilirubin 0.5 AST 21 ALT 23 Alkaline Phosphatase 94 Troponin I High Sens Total Protein 6.7 Albumin 3.9 Globulin 2.8 Albumin/Globulin Ratio 1.4 Lipase 27 TSH 1.71 Urine Color Urine Clarity Urine pH Ur Specific [place]man Urine Protein Urine Glucose (UA) Urine Ketones Urine Occult Blood Urine Nitrite Urine Bilirubin Urine Urobilinogen Ur Leukocyte Esterase Ur Microscopic Review Urine Culture Comments 09/02/19 09/02/19 15:36 16:42 WBC RBC Hgb Hct MCV MCH MCHC RDW Plt Count MPV Neut # (Auto) Lymph # (Auto) [place] # (Auto) Eos # (Auto) Baso # (Auto) Absolute Nucleated RBC Nucleated RBC % Sodium Potassium Chloride Carbon Dioxide Anion Gap BUN Creatinine Estimated GFR (MDRD) Glucose Calcium Total Bilirubin AST ALT Alkaline Phosphatase Troponin I High Sens 3.0 Total Protein Albumin Globulin Albumin/Globulin Ratio Lipase TSH Urine Color YELLOW Urine Clarity CLEAR Urine pH 6.0 Ur Specific [place] 1.020 Urine Protein NEGATIVE Urine Glucose (UA) NEGATIVE Urine Ketones NEGATIVE Urine Occult Blood NEGATIVE Urine Nitrite NEGATIVE Urine Bilirubin NEGATIVE Urine Urobilinogen 1 (NORMAL) Ur Leukocyte Esterase NEGATIVE Ur Microscopic Review NOT INDICATED Urine Culture Comments NOT INDICATED - Rads (name of study) Head CT WO Radiology: Other (Age-related changes without evidence of acute intracranial abnormality) PD MEDICAL DECISION MAKING - ED course Complexity details: considered differential (Concussion, UTI, ICH, Electrolyte abnormality, pneumonia, abrasion, ACS) ED course: On arrival patient is awake, alert, is disoriented but this appears to be his baseline due to dementia. His strength is symmetric and other than the disorientation/confusion his neurologic exam is unremarkable. On his exam he does have a small abrasion to his forehead, no other signs of trauma. His labs show a mild leukopenia, which appears to be his baseline compared to past results, he also has a mild anemia which is also his baseline. CT scan of the head reveals no acute intracranial abdomen ready, his troponin is negative and his EKG is unremarkable without signs of acute ischemia or dysrhythmia. Chest x-ray is unrevealing. His urine is negative for infection. On reevaluation after observation in the emergency department patient continues to have no complaints, he awakens easily from rest, he answers my basic questions without issues. I tried calling his facility and despite 4 tries with multiple extensions was unable to contact anyone. I spoke with his daughter Janie, who states that this this is his baseline. She states that he has fallen asleep and falling forward hitting his head in the past, and at baseline he sleeps quite a lot. She arrived to the emergency department and spoke with the patient, and states that he is at or near his baseline. She feels comfortable taking him back to his assisted living. Patient feels comfort this plan as well. Return precautions were discussed with both of them, and he was discharged home in her care Departure - Departure Disposition: 01 Home, Self Care Clinical Impression: Head injury Qualifiers: Encounter type: initial encounter Qualified Code(s): S09.90XA - Unspecified injury of head, initial encounter Condition: Good Instructions: ED Head Injury Closed Follow-Up: Marycarmen Belle PA-C [Primary Care Provider] - Within 3 Days Comments: Guille was seen today for some weakness/tiredness as well as hitting his head. The CT scan of the head does not show signs of a fracture or bleed, and the lab work is reassuring (he has a slight anemia, but no changes from past values). He may have suffered a concussion, at this time I do not see anything that would keep him in the hospital. If he develops increased confusion, severe headache, or any other concerning symptoms please return to the emergency department for further evaluation. He should follow-up with his regular doctor. Discharge Date/Time: 09/02/19 19:39
[2019-09-02 15:46] LABS: BASOPHILS % (AUTO) 0.2 %; EOSINOPHILS # (AUTO) 0.1 10^3/uL (0.0-0.7); EOSINOPHILS % (AUTO) 2.2 %; HGB - HEMOGLOBIN 11.4 g/dL (14.0-18.0); LYMPHOCYTES # (AUTO) 0.9 10^3/uL (1.5-3.5); LYMPHOCYTES % (AUTO) 19.3 %; MEAN CORPUSCULAR HEMOGLOBIN 30.6 pg (27.0-31.0); MEAN CORPUSCULAR HGB CONC 33.3 g/dL (32.0-36.0); MEAN CORPUSCULAR VOLUME 91.9 fL (80.0-94.0); MEAN PLATELET VOLUME 9.3 fL (7.4-11.4); MONOCYTES # (AUTO) 0.5 10^3/uL (0.0-1.0); NEUTROPHILS # (AUTO) 3.1 10^3/uL (1.5-6.6); NEUTROPHILS % (AUTO) 68.1 %; PLT - PLATELET COUNT 191 10^3/uL (130-450); RED BLOOD COUNT 3.72 10^6/uL (4.70-6.10); RED CELL DISTRIBUTION WIDTH 13.1 % (12.0-15.0); WHITE BLOOD COUNT 4.5 x10^3/uL (4.8-10.8)
[2019-09-02 15:56] LABS: ALBUMIN 3.9 g/dL (3.2-5.5); ALBUMIN/GLOBULIN RATIO 1.4 (1.0-2.2); BILIRUBIN,TOTAL 0.5 mg/dL (0.2-1.0); CALCIUM 8.9 mg/dL (8.5-10.3); CREATININE 0.9 mg/dL (0.6-1.2); TOTAL PROTEIN 6.7 g/dL (6.7-8.2)
--- NOTE | 2019-09-02 16:09 | XRAY Report ---
Reason: chest pain Procedure Date: 09/02/2019 Accession Number: [id number] / [id number] Procedure: XR - Chest 1 View X-Ray CPT Code: 00377 FULL RESULT: EXAM: CHEST RADIOGRAPHY EXAM DATE: 09/02/2019 03:54 PM. CLINICAL HISTORY: Chest pain. COMPARISON: None. TECHNIQUE: 1 view. FINDINGS: Lungs/Pleura: No focal opacities evident. No pleural effusion. No pneumothorax. Mediastinum: Within exam limitations, the cardiomediastinal contour is normal. Other: None. IMPRESSION: Normal single view chest. RADIA
[2019-09-02 16:59] LABS: BILIRUBIN,URINE NEGATIVE (NEGATIVE); GLUCOSE, URINE (UA) NEGATIVE (NEGATIVE); KETONES,URINE (UA) NEGATIVE (NEGATIVE); LEUKOCYTE ESTERASE, URINE NEGATIVE (NEGATIVE); NITRITE,URINE NEGATIVE (NEGATIVE); OCCULT BLOOD,URINE NEGATIVE (NEGATIVE); PROTEIN,URINE NEGATIVE (NEGATIVE); UROBILINOGEN,URINE 1 (NORMAL) E.U./dL (NORMAL)
[2019-09-02 17:01] LABS: CLARITY,URINE CLEAR (CLEAR)
--- NOTE | 2019-09-02 17:06 | CT Report ---
Reason: Fell forward hittting head, weakness Procedure Date: 09/02/2019 Accession Number: [id number] / [id number] Procedure: CT - HEAD WO CPT Code: FULL RESULT: EXAM: CT HEAD EXAM DATE: 09/02/2019 03:51 PM. CLINICAL HISTORY: 74-year-old male. Fell forward hitting head, weakness. COMPARISON: CT head 06/23/2019 TECHNIQUE: Multiaxial CT images were obtained from the foramen magnum to the vertex. Reformats: Sagittal and coronal. IV contrast: None. In accordance with CT protocol optimization, one or more of the following dose reduction techniques were utilized for this exam: automated exposure control, adjustment of mA and/or KV based on patient size, or use of iterative reconstructive technique. FINDINGS: Parenchyma: No intraparenchymal hemorrhage. No evidence of mass, midline shift, or CT findings of acute infarction. [place]-white differentiation is distinct. Diffuse chronic microangiopathic white matter changes are evident. Extraaxial Spaces: Normal for age. No subdural or epidural collections identified. Ventricles: The ventricles and cortical sulci are enlarged, consistent with age-related tissue loss. Sinuses and orbits: Imaged paranasal sinuses, orbits, and mastoids show no significant abnormality. Bones: No evidence of fracture or calvarial defect. Other: None. IMPRESSION: Generalized age-related cortical atrophic changes without evidence of acute intracranial abnormality. RADIA
[2019-09-02 18:23] VITALS: BP 112/72
== END 2019-09-02 19:39 | disposition home or self-care (01) ==
LOC: EDUNIT# → ED 15:05
DX: S09.90XA Unspecified injury of head, initial encounter (principal); S00.81XA Abrasion of other part of head, initial encounter; W22.8XXA Striking against or struck by other objects, initial encounter; Y93.89 Activity, other specified; Y92.099 Unspecified place in other non-institutional residence as the place of occurrence of the external cause; G30.9 Alzheimer's disease, unspecified; F02.80 Dementia in other diseases classified elsewhere, unspecified severity, without behavioral disturbance, psychotic disturbance, mood disturbance, and anxiety; D64.9 Anemia, unspecified; D72.819 Decreased white blood cell count, unspecified
CPT/HCPCS: 36415; 70450; 71045; 80053; 81001; 81003; 83690; 84443; 84484; 85025; 87086; 93005; 99284; 99285

== ENCOUNTER 2021-10-12 12:37 | Outpatient (CLI) | payer MEDICARE, OTHER | END 2021-10-12 23:59 | disposition home or self-care (01) | LOC: EMS 12:37 ==